=== PATIENT | female | born 2000 | race African-American/Black ===

== ENCOUNTER 2022-03-24 04:16 | Emergency (ER) | payer OTHER ==
[~2022-03-24] VITALS: Ht 165.1 cm; Wt 74.4 kg
[2022-03-24 05:10] VITALS: BP 127/87
== END 2022-03-24 05:10 | disposition home or self-care (01) ==
LOC: FSED 05:00
DX: R50.9 Fever, unspecified (principal); R55 Syncope and collapse; R42 Dizziness and giddiness; R53.1 Weakness; F17.210 Nicotine dependence, cigarettes, uncomplicated
CPT/HCPCS: 81003; 81025; 87400; 99282